=== PATIENT | male | born 1975 | race Caucasian/White ===

== ENCOUNTER 2020-11-29 15:55 | Emergency (ER) | payer MEDICAID ==
[~2020-11-29] VITALS: Ht 172.7 cm; Wt 79.4 kg
[2020-11-29 16:00] VITALS: BP_SYST 184
[2020-11-29 17:40] LABS: BILIRUBIN,URINE NEGATIVE (NEGATIVE); BLOOD, URINE NEGATIVE (NEGATIVE); CLARITY/URINE CLEAR (CLEAR); COLOR,URINE YELLOW (YELLOW); GLUCOSE,URINE NEGATIVE (NEGATIVE); KETONES,URINE NEGATIVE (NEGATIVE); LEUKOCYTE ESTERASE ,URINE NEGATIVE (NEGATIVE); NITRITE, URINE NEGATIVE (NEGATIVE); PH,URINE 7.5 (5.0-8.0); PROTEIN URINE NEGATIVE (NEGATIVE)
[2020-11-29 17:42] LABS: BASOPHILS % (AUTO) 0.5 % (0.0-2.0); EOSINOPHILS # (AUTO) 0.3 K/uL (0.0-0.4); EOSINOPHILS % (AUTO) 5.4 % (0.0-4.0); HEMOGLOBIN 9.2 g/dL (14.0-18.0); LYMPHOCYTES # (AUTO) 1.8 K/uL (1.0-5.5); LYMPHOCYTES % (AUTO) 28.5 % (20.5-51.5); MEAN CORPUSCULAR HEMOGLOBIN 31 pg (27-31); MEAN CORPUSCULAR HGB CONC 34 % (32-36); MEAN CORPUSCULAR VOLUME 90 fL (79.0-98.0); MONOCYTES # (AUTO) 0.3 K/uL (0.0-1.0); MONOCYTES % (AUTO) 5.3 % (1.7-9.3); NEUTROPHILS # (AUTO) 3.7 K/uL (1.8-7.7); NEUTROPHILS % (AUTO) 60.3 % (40.0-70.0); PLATELET COUNT (AUTO) 368 K/uL (130-430); RED BLOOD CELL COUNT(AUTO) 3.01 MIL/uL (4.2-6.2); RED CELL DISTRIBUTION WIDTH 14.6 % (9.0-15.0); WHITE BLOOD COUNT (AUTO) 6.2 K/uL (4.8-10.8)
[2020-11-29 17:58] LABS: PROTHROMBIN TIME 9.9 SECS (9.5-12.5)
[2020-11-29 18:00] LABS: CALCIUM 8.5 mg/dL (8.4-11.0); CREATININE 0.89 mg/dL (0.55-1.30); POTASSIUM 3.9 mmol/L (3.5-5.1)
[2020-11-29 18:04] LABS: ALBUMIN 3.8 g/dL (3.4-4.8)
[2020-11-29 18:05] VITALS: BP_SYST 158
== END 2020-11-29 18:05 | disposition home or self-care (01) ==
LOC: SED 15:55
DX: R10.32 Left lower quadrant pain (principal)
CPT/HCPCS: 36415; 76376; 80053; 81003; 82150-TC; 83605; 83615-TC; 83690-TC; 85025; 85610-TC; 85730-TC; 99284

== ENCOUNTER 2021-12-05 15:55 | Emergency (ER) | payer MEDICAID ==
[~2021-12-05] VITALS: Ht 175.3 cm; Wt 80.3 kg
[2021-12-05 16:00] VITALS: BP_SYST 143
[2021-12-05 17:15] LABS: BASOPHILS # (AUTO) 0.1 K/uL (0.0-0.2); BASOPHILS % (AUTO) 1.3 % (0.0-2.0); EOSINOPHILS # (AUTO) 0.2 K/uL (0.0-0.4); EOSINOPHILS % (AUTO) 3.4 % (0.0-4.0); HEMATOCRIT 47.9 % (36-54); HEMOGLOBIN 16.4 g/dL (14.0-18.0); LYMPHOCYTES # (AUTO) 1.1 K/uL (1.0-5.5); LYMPHOCYTES % (AUTO) 22.2 % (20.5-51.5); MEAN CORPUSCULAR HEMOGLOBIN 30 pg (27-31); MEAN CORPUSCULAR HGB CONC 34 % (32-36); MEAN CORPUSCULAR VOLUME 87 fL (79.0-98.0); MONOCYTES # (AUTO) 0.4 K/uL (0.0-1.0); MONOCYTES % (AUTO) 8.7 % (1.7-9.3); NEUTROPHILS # (AUTO) 3.2 K/uL (1.8-7.7); NEUTROPHILS % (AUTO) 64.4 % (40.0-70.0); PLATELET COUNT (AUTO) 156 K/uL (130-430); RED BLOOD CELL COUNT(AUTO) 5.49 MIL/uL (4.2-6.2); RED CELL DISTRIBUTION WIDTH 15.3 % (9.0-15.0); WHITE BLOOD COUNT (AUTO) 4.9 K/uL (4.8-10.8)
[2021-12-05 17:34] LABS: CALCIUM 7.5 mg/dL (8.4-11.0); CREATININE 0.91 mg/dL (0.55-1.30); POTASSIUM 3.6 mmol/L (3.5-5.1)
[2021-12-05 17:40] LABS: ALBUMIN 3.7 g/dL (3.4-4.8); TOTAL BILIRUBIN 1.5 mg/dL (0.0-1.0)
[2021-12-05] MEDS ORDERED: ONDA-8 TL ×2 (17:53→17:56)
[2021-12-05] MEDS ORDERED: LOPE2CAP PO ×2 (17:53→17:56)
== END 2021-12-05 18:01 | disposition home or self-care (01) ==
LOC: SED 15:55
DX: R19.7 Diarrhea, unspecified (principal); R11.0 Nausea; R10.9 Unspecified abdominal pain; Z79.899 Other long term (current) drug therapy
CPT/HCPCS: 36415; 80053; 83690; 85025; 99283

== ENCOUNTER 2022-01-05 20:51 | Emergency (ER) | payer MEDICAID ==
[~2022-01-05] VITALS: Ht 175.3 cm; Wt 77.1 kg
[~2022-01-05 20:51] MED LIST: LOPE2CAP PO; ONDA-8 TL
[2022-01-05 21:10] VITALS: BP_SYST 187
[2022-01-06] MEDS ORDERED: CEPH250C PO (00:35)
[2022-01-06 00:50] VITALS: BP_SYST 172
== END 2022-01-06 00:50 | disposition home or self-care (01) ==
LOC: SED 20:51
DX: H00.011 Hordeolum externum right upper eyelid (principal); L03.213 Periorbital cellulitis; R19.7 Diarrhea, unspecified
CPT/HCPCS: 99283

== ENCOUNTER 2024-07-26 09:30 | Emergency (ER) | payer MEDICAID, OTHER ==
[~2024-07-26] VITALS: Ht 175.3 cm; Wt 80.7 kg
[~2024-07-26 09:30] MED LIST changes: +CEPH250C PO
[2024-07-26 10:11] VITALS: BP_SYST 199; PULSE 99; RESP 22; TEMP 97.6; O2SAT 100
[2024-07-26] MEDS: cloNIDine HCL 0.1 MG TABLET PO ONE (10:49)
[2024-07-26 10:57] LABS: BASOPHILS % (AUTO) 0.5 % (0.0-2.0); EOSINOPHILS # (AUTO) 0.4 K/uL (0.0-0.4); EOSINOPHILS % (AUTO) 6.2 % (0.0-4.0); HEMATOCRIT 38.9 % (36-54); HEMOGLOBIN 13.7 g/dL (14.0-18.0); LYMPHOCYTES # (AUTO) 1.8 K/uL (1.0-5.5); MEAN CORPUSCULAR HEMOGLOBIN 32 pg (27-31); MEAN CORPUSCULAR HGB CONC 35 % (32-36); MEAN CORPUSCULAR VOLUME 90 fL (79.0-98.0); MONOCYTES # (AUTO) 0.3 K/uL (0.0-1.0); MONOCYTES % (AUTO) 4.8 % (1.7-9.3); NEUTROPHILS # (AUTO) 3.8 K/uL (1.8-7.7); NEUTROPHILS % (AUTO) 60.5 % (40.0-70.0); PLATELET COUNT (AUTO) 190 K/uL (130-430); RED BLOOD CELL COUNT(AUTO) 4.31 MIL/uL (4.2-6.2); RED CELL DISTRIBUTION WIDTH 13.4 % (9.0-15.0); WHITE BLOOD COUNT (AUTO) 6.3 K/uL (4.8-10.8)
[2024-07-26 11:14] LABS: ALBUMIN 3.5 g/dL (3.4-4.8); BILIRUBIN,DIRECT 0.3 mg/dL (0.0-0.3); CALCIUM 8.7 mg/dL (8.4-11.0); CREATININE 0.94 mg/dL (0.55-1.30); POTASSIUM 4.1 mmol/L (3.5-5.1); TOTAL BILIRUBIN 1.2 mg/dL (0.0-1.0); TOTAL PROTEIN, SERUM 6.8 g/dL (6.4-8.3)
[2024-07-26 11:33] VITALS: BP_SYST 170; PULSE 99; RESP 22; TEMP 97.6; O2SAT 100
== END 2024-07-26 11:35 | disposition home or self-care (01) ==
LOC: SED 09:30
DX: K92.1 Melena (principal); R19.7 Diarrhea, unspecified; I10 Essential (primary) hypertension; Z79.899 Other long term (current) drug therapy; Z79.2 Long term (current) use of antibiotics
CPT/HCPCS: 36415; 80048; 80076; 82272; 83690; 85025; 99283

== ENCOUNTER 2024-07-28 18:08 | Emergency (ER) | payer OTHER ==
[~2024-07-28] VITALS: Ht 175.3 cm; Wt 79.4 kg
[2024-07-28 18:15] VITALS: BP_SYST 172; PULSE 101; RESP 20; TEMP 97.3; O2SAT 98
[2024-07-28 20:49] VITALS: BP_SYST 152; PULSE 81; RESP 18; TEMP 97.3; O2SAT 98
== END 2024-07-28 20:49 | disposition home or self-care (01) ==
LOC: SED 18:08
DX: K52.9 Noninfective gastroenteritis and colitis, unspecified (principal)
CPT/HCPCS: 99281